=== PATIENT | male | born 1985 | race Caucasian/White ===

== ENCOUNTER 2019-05-19 10:22 | Emergency (ER) | payer SELFPAY ==
[2019-05-19 10:28] VITALS: BP 124/86; PULSE 91; TEMP 98.5; BMI 29.0
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
== END 2019-05-19 12:06 | disposition home or self-care (01) ==
LOC: JERFT 10:22
DX: S00.83XA Contusion of other part of head, initial encounter (principal); S00.81XA Abrasion of other part of head, initial encounter; S80.211A Abrasion, right knee, initial encounter; Y35.813A Legal intervention involving manhandling, suspect injured, initial encounter; Y93.89 Activity, other specified; Y92.89 Other specified places as the place of occurrence of the external cause; Y99.8 Other external cause status
CPT/HCPCS: 70450-TC; 73562-TC-RT-FY; 99281-25